=== PATIENT | male | born 1955 | race Caucasian/White ===

== ENCOUNTER 2019-11-29 22:02 | Inpatient (IN) | payer MEDICARE, MEDICAID ==
[~2019-11-29] VITALS: Ht 177.8 cm; Wt 68.0 kg
[2019-11-29 22:26] LABS: BASOPHILS 0.1 % (0-2); EOSINOPHILS 0.3 % (0-7); HEMATOCRIT 47.3 % (42.0-54.0); HEMOGLOBIN 16.3 g/dL (13.5-17.5); IMMATURE GRANULOCYTES 0.3 % (0-5); MCHC 34.5 g/dL (31.0-37.0); MCV 92.7 fL (80.0-100.0); MEAN PLATELET VOLUME 8.8 fL (7.4-10.4); MONOCYTES 4.5 % (2-11); NEUTROPHILS 85.8 % (40-80); PLATELET COUNT 271 10x3/uL (130-400); RDW 13.1 % (11.5-14.5); WBC 18.3 10x3/uL (4.8-10.8)
[2019-11-29 22:33] LABS: CALC OSMOLALITY 277 mosm/kg (275-300); CALCIUM 8.3 mg/dL (8.5-10.1); CARBON DIOXIDE 28.4 mmol/L (21.0-32.0); CHLORIDE - SERUM 102 mmol/L (98-107); CREATININE - SERUM 1.3 mg/dL (0.6-1.3); GLUCOSE 102 mg/dL (74-106); POTASSIUM - SERUM 3.2 mmol/L (3.5-5.1); SODIUM 140 mmol/L (136-145); UREA NITROGEN 11 mg/dL (7-18); eGFR NON AFRICAN AMERICAN 59 mL/min (90-120)
[2019-11-29 22:40] LABS: ALBUMIN 3.8 g/dL (3.4-5.0); ALKALINE PHOSPHATASE 96 U/L (30-120); ALT (SGPT) 17 U/L (10-68); AMYLASE - SERUM 60 U/L (25-115); LIPASE 120 U/L (73-393); PROTEIN - SERUM 6.9 g/dL (6.4-8.2)
[2019-11-29 22:41] LABS: TROPONIN-I < 0.017 ng/mL (0.000-0.060)
--- NOTE | 2019-11-29 23:18 | NUR ---
PT TO RADIOLOGY AT THIS TIME.
--- NOTE | 2019-11-29 23:40 | NUR ---
PT RETURNED FROM RADIOLOGY AT THIS TIME.
[2019-11-29 23:53] LABS: BILIRUBIN NEGATIVE (NEGATIVE); GLUCOSE NEGATIVE (NEGATIVE); KETONE NEGATIVE (NEGATIVE); NITRITE NEGATIVE (NEGATIVE); UROBILINOGEN NORMAL (NORMAL)
--- NOTE | 2019-11-30 01:05 | NUR ---
RECEIVED PT FROM ER VIA W/C. ALERT AND ORIENTED X4. VERY TALKATIVE. STATES HE IS SCHIZOPHRENIC BUT DENIES BEING ON ANY HOME MEDS. PT IS POOR HISTORIAN. RESP EVEN AND NONLABORED. PT IS A SMOKER BUT REFUSES NICOTINE PATCH. REPORTS ABD PAIN 9. RECEIVED MORPHINE AND ZOFRAN IN ER. NS @ 125 MLHR INFUSING IN LT AC. AMBULATORY. REPORTS HE LIVES ALONE. INSTRUCTED ON CLEAR LIQ DIET. SR ELEVATED X2. CL IN REACH.
[2019-11-30 02:47] VITALS: BP 139/91; BMI 21.5
--- NOTE | 2019-11-30 03:25 | NUR ---
MEDICATED WITH MORPHINE AND ZOFRAN FOR C/O ABD PAIN RATING 9. CL IN REACH.
[2019-11-30 04:00] VITALS: BP 98/56
--- NOTE | 2019-11-30 08:00 | NUR ---
AM MEDS. ASSESSMENT PER FLOW SHEET. PAIN MEDS ORDERED FOR PAIN 10/10 TO ABDOMEN. DENIES FURTHER NEEDS AT THIS TIME. CALL LIGHT IN REACH
[2019-11-30 08:40] VITALS: BP 99/62
--- NOTE | 2019-11-30 12:26 | NUR ---
PAIN MEDS ORDERED PER JUL FOR PAIN 9/10 TO ABDOMEN.
[2019-11-30 12:41] VITALS: BP 103/67
[2019-11-30 13:04] VITALS: Ht 177.8 cm; Wt 68.0 kg
[2019-11-30 16:21] VITALS: BP 119/72
--- NOTE | 2019-11-30 18:47 | NUR ---
REMAINS WITHOUT CHANGE. CONT PLAN OF CARE
[2019-11-30 20:00] VITALS: BP 116/68
--- NOTE | 2019-11-30 20:00 | NUR ---
PATIENT RESTING IN BED WITH EYES CLOSED. NO S/S OF ACUTE DISTRESS. NO C/O AT THIS TIME. PATIENT SEEMS VERY LETHARGIC. IV IN LEFT AC, NORMAL SALINE @ 125 ML/HR. IV IS PATENT WITHOUT REDNESS, SWELLING, OR TENDERNESS. PATIENT IS UP ADLIB TO THE BATHROOM. CALL LIGHT WITHIN REACH. WILL CONTINUE TO MONITOR.
[2019-12-01 04:00] VITALS: BP 102/64
[2019-12-01 05:37] LABS: BASOPHILS 0.1 % (0-2); EOSINOPHILS 0.1 % (0-7); HEMATOCRIT 38.8 % (42.0-54.0); IMMATURE GRANULOCYTES 0.3 % (0-5); LYMPHOCYTES 11.4 % (15-50); MCH 31.1 pg (26.0-34.0); MCV 94.4 fL (80.0-100.0); MEAN PLATELET VOLUME 9.1 fL (7.4-10.4); MONOCYTES 6.5 % (2-11); NEUTROPHILS 81.6 % (40-80); RBC 4.11 10x6/uL (4.20-6.10); RDW 13.5 % (11.5-14.5)
[2019-12-01 05:40] LABS: HEMOGLOBIN 12.8 g/dL (13.5-17.5); PLATELET COUNT 216 10x3/uL (130-400); WBC 11.2 10x3/uL (4.8-10.8)
[2019-12-01 06:04] LABS: ALKALINE PHOSPHATASE 63 U/L (30-120); BILIRUBIN - TOTAL 0.49 mg/dL (0.2-1.3); CALCIUM 7.9 mg/dL (8.5-10.1); CARBON DIOXIDE 25.6 mmol/L (21.0-32.0); CHLORIDE - SERUM 107 mmol/L (98-107); GLUCOSE 104 mg/dL (74-106); POTASSIUM - SERUM 3.5 mmol/L (3.5-5.1); PROTEIN - SERUM 5.3 g/dL (6.4-8.2); SODIUM 139 mmol/L (136-145); eGFR NON AFRICAN AMERICAN 80 mL/min (90-120)
[2019-12-01 06:07] LABS: ALBUMIN 2.5 g/dL (3.4-5.0); ALT (SGPT) 10 U/L (10-68); CALC OSMOLALITY 275 mosm/kg (275-300); UREA NITROGEN 7 mg/dL (7-18)
--- NOTE | 2019-12-01 08:30 | NUR ---
ASSESSMENT PER FLOW SHEET. PATIENT IS WITHOUT DISTRESS. DENIES NEEDS.CALL LIGHT IN REACH.
[2019-12-01 08:49] VITALS: BP 122/67
[2019-12-01 12:47] VITALS: BP 132/66
--- NOTE | 2019-12-01 12:51 | NUR ---
SAYS TORADOL HELPED WITH PAIN MORE THAN MORPHINE. MONITOR FOR NEEDS
[2019-12-01 16:00] VITALS: BP 110/69
--- NOTE | 2019-12-01 18:25 | NUR ---
PATIENT IS WITHOUT NEEDS,WITHOUT DISTRESS.CALL LIGHT IN REACH
[2019-12-01 20:00] VITALS: BP 126/58
--- NOTE | 2019-12-01 21:00 | NUR ---
PATIENT RESTING IN BED WATCHING TV. NO S/S OF ACUTE DISTRESS. NO C/O AT THIS TIME. PATIENT HAS 2L O2 PRN. PATIENT HAS IV IN LEFT AC, NORMAL SALINE @ 125 ML/HR. IV IS PATENT WITHOUT REDNESS, SWELLING, OR TENDERNESS. PATIENT IS UP ADLIB TO THE BATHROOM. CALL LIGHT WITHIN REACH. WILL CONTINUE TO MONITOR.
--- NOTE | 2019-12-01 21:25 | NUR ---
PATIENT REFUSED BATH TONIGHT, AFTER FAMILY CALLED FILLER FEEDER WANTING HER TO GIVE HIM A BATH. CALL LIGHT WITHIN REACH. WILL CONTINUE TO MONITOR.
--- NOTE | 2019-12-02 03:44 | NUR ---
I have reviewed this patient and I concur with the Shift Assessment completed by the Licensed Practical Nurse today this shift.
[2019-12-02 06:15] LABS: BASOPHILS 0.1 % (0-2); EOSINOPHILS 0.5 % (0-7); HEMATOCRIT 42.6 % (42.0-54.0); HEMOGLOBIN 14.2 g/dL (13.5-17.5); IMMATURE GRANULOCYTES 0.3 % (0-5); LYMPHOCYTES 7.7 % (15-50); MCH 31.1 pg (26.0-34.0); MCHC 33.3 g/dL (31.0-37.0); MCV 93.2 fL (80.0-100.0); MEAN PLATELET VOLUME 8.8 fL (7.4-10.4); MONOCYTES 3.4 % (2-11); PLATELET COUNT 219 10x3/uL (130-400); RBC 4.57 10x6/uL (4.20-6.10); RDW 13.2 % (11.5-14.5); WBC 11.5 10x3/uL (4.8-10.8)
--- NOTE | 2019-12-02 06:50 | NUR ---
PATIENT IV INFILTRATED. IV REMOVED, CATHETER TIP INTACT. PATIENT HAD SOME BLOOD SPOTS ON HIS UNDERWEAR THAT HE SAID WAS "PROVE THAT HE WAS HEMORRHAGING". I TOLD HIM THAT I DIDN'T THINK THAT HE WAS HEMORRHAGING BECAUSE HE JUST GOT UP TO GO TO THE BATHROOM WITHOUT BEING LIGHT HEADED. PATIENT COLOR WAS PINK AND PATIENT WAS CONHERENT AND A&O. I TRIED TO START A NEW IV, BUT PATIENT WAS CONVINCED THAT I COULDN'T GET THE IV IN ONE STICK BECAUSE HE WAS LOSING BLOOD. PATIENT WANTED TO HAVE THE ER DOCTOR TO COME AND SEE HIM. I TOLD HIM THAT THAT'S NOT HOW IT WORKS, BUT I WAS GOING TO LOOK AT HIS LABS WHEN THEY CAME IN TO MAKE SURE. PATIENT BECAME FRUSTRATED WITH ME STATING, "YOU'RE NOT LISTENING TO ME, I NEED SOMEONE WHO WILL". I GOT MEGGAN, PICKER NURSE, TO TALK TO HIM AND SEE WHAT HE WANTED DONE. MEGGAN TOLD ME THAT HE WAS FINE WITH THE CARE HE WAS RECIEVING AND THAT SHE ALSO DIDN'T THINK THAT HE WAS HEMORRHAGING. HIS LABS HAVE COME BACK AND HIS H&H IS 14.2 & 42.6 . PATIENT REFUSED HIS BREATHING TREATMENT AND STATED, "I WANT TO SEE A REAL DOCTOR AND A REAL HOSPITAL NOW." CALL LIGHT WITHIN REACH. WILL CONTINUE TO MONITOR.
[2019-12-02 06:51] LABS: CALC OSMOLALITY 277 mosm/kg (275-300); CALCIUM 8.3 mg/dL (8.5-10.1); CARBON DIOXIDE 28.4 mmol/L (21.0-32.0); CHLORIDE - SERUM 106 mmol/L (98-107); GLUCOSE 102 mg/dL (74-106); POTASSIUM - SERUM 3.1 mmol/L (3.5-5.1); SODIUM 141 mmol/L (136-145); eGFR NON AFRICAN AMERICAN 80 mL/min (90-120)
[2019-12-02 06:52] LABS: UREA NITROGEN 5 mg/dL (7-18)
--- NOTE | 2019-12-02 07:30 | NUR ---
IV STARTED IN RIGHT ARM X 1 STICK AT THIS TIME. PATIENT TOLERATED WITH SMALL AMOUNT OF PAIN. CALL LIGHT WITHIN REACH.
--- NOTE | 2019-12-02 07:49 | NUR ---
PATIENT RECIEVED MORPHINE 4 MG IVP SLOWLY OVER 3 MINUTES AT THIS TIME. CALL LIGHT WITHIN REACH.
--- NOTE | 2019-12-02 08:00 | NUR ---
DR. PAULA IN TO SEE PATIENT.
[2019-12-02 10:44] VITALS: BP 104/98
--- NOTE | 2019-12-02 14:10 | NUR ---
PATIENT STATED HE WANTS TO LEAVE AMA AT THIS TIME BECAUSE HE IS TIRED OF SITTING HERE NOT BEING TREATED AND HASNT SEEN THE DOCTOR. EXPLAINED TO PATIENT THAT THE DOCTOR WAS IN THIS AM AND HE SAW PATIENT AND ORDERED ANOTHER CT SCAN. PATIENT SAID HE NEVR SAW THE PHYSICIAN. PAGED DR. MAE.
--- NOTE | 2019-12-02 14:12 | NUR ---
PATIENT CHANGED HIS MIND AND STATED HE DIDNT WANT TO GO BC HE DIDNT THINK HE COULD WALK AND DOESNT HAVE A RIDE. NOTFIED DR. MAE THAT PATIENT WAS WANTING TO LEAVE AMA BUT CHANGED HIS MIND. PATIENT RECIEVED PAIN MEDS 6 MG IVP SLOWLY OVER 6 MINS, FOR PAIN. IV INTACT. CALL LIGHT WITHIN REACH.
--- NOTE | 2019-12-02 16:15 | NUR ---
PATIENT LEAVING AMA. STATED HE DIDNT WANT TO BE HERE ANYMORE BECAUSE HE IS NOT BEING TREATED. EXPLAINED THAT HE HAS BEEN GETTING IV ANTIBIOTICS AND PAIN MEDS AND HAS HAD A TEST DONE THIS MORNING ON HIS ABDOMEN. EXPLAINED AMA RISKS OF LEAVING. BENEFITS OF STAYING, AND ALTERNATIVES. PATIENT STATED HE DOESNT WANT TO STAY. REMOVED IV WITH CATH TIP INTACT. NOTIFIED DIANELYS COYNE AND DR. MAE.
== END 2019-12-02 16:34 | disposition left against medical advice (07) | DRG 392 ==
LOC: D.ER 22:02 → D.MS 11-30 00:24
PROVIDERS: Family Medicine; ADMIT Family Medicine; ATTEND Family Medicine
DX: K57.92 Diverticulitis of intestine, part unspecified, without perforation or abscess without bleeding (principal); E87.6 Hypokalemia; D72.829 Elevated white blood cell count, unspecified; R10.9 Unspecified abdominal pain; F17.200 Nicotine dependence, unspecified, uncomplicated; F20.9 Schizophrenia, unspecified